=== PATIENT | female | born 1970 | race Caucasian/White ===

== ENCOUNTER 2017-02-28 06:13 | Emergency (ER) | payer MEDICAID, OTHER ==
[~2017-02-28] VITALS: Ht 154.9 cm; Wt 63.0 kg
[~2017-02-28 06:13] MED LIST: ATENOLOL; ELIM TOP; HYDR-3011 PO; PRED20 PO; TR1B60 TOP; [UNRECOGNIZED DRUG - REMARK]
[2017-02-28 06:18] VITALS: Ht 154.9 cm; Wt 63.0 kg
--- NOTE | 2017-02-28 07:44 | RADRPT ---
PROCEDURE: CHEST - 1 VIEW CLINICAL INDICATION: 47-year-old female with midsternal mass. TECHNIQUE: A single frontal PA view of the chest was performed. The images were reviewed on a PAC S workstation. COMPARISON: None. FINDINGS: The cardiomediastinal silhouette has a normal appearance. There is no evidence for an infiltrate. There is no evidence for congestive heart failure. There is no evidence for pneumothorax. The osseou s structures are intact. IMPRESSION: No evidence for active cardiopulmonary disease. .Patel Graham MD, MD Date Time Electronically viewed and signed by .Patel Graham MD, on 02/28/2017 07:44 .M/
--- NOTE | 2017-02-28 08:35 | ERD ---
ER Documentation Chief Complaint Date/Time DATE: 02/28/17 TIME: 08:29 Chief Complaint Chest lump started over night and BISHOP x1 week HPI This is a 47-year-old female presenting to the emergency department for mass to chest 3 days. Patient states she noticed a mass to mid chest superior to sternum 3 days ago that has slowly gotten larger. Patient currently denies pain. Denies chest pain, shortness breath or difficulty breathing. No difficulty swallowing or drooling. No labored breathing. Patient is talking in complete sentences. No sore throat. No fevers or chills. Patient has history of hyperthyroidism and is currently taking atenolol and Tapazole. ROS All systems reviewed and are negative except as per history of present illness. Medications Home Meds Active Scripts Prednisone (Prednisone) 20 Mg Tab, 40 MG PO DAILY for 4 Days, TAB Prov:ALTHEA MCDONNELL NP 08/11/16 Permethrin* (Elimite*) 5% Cr, 1 APPLIC TOP ONCE for 1 Day, TUB Prov:ALTHEA MCDONNELL NP 08/11/16 Hydroxyzine Hcl* (Hydroxyzine Hcl*) 25 Mg Tablet, 25 MG PO TID, #30 TAB Prov:WILDER COOL DO 07/19/16 Triamcinolone Acetonide (Triamcinolone Acetonide) 0.1% - 60 Ml Lotion, 1 APPLIC TOP BID, #1 BOTTLE Prov:WILDER COOL DO 07/19/16 Permethrin* (Elimite*) 5% Cr, 1 APPLIC TOP ONCE, #1 TUB Prov:WILDER COOL DO 07/19/16 Reported Medications Atenolol 04/28/11 [Hypothyroidism Meds] No Conflict Check 04/28/11 Allergies Allergies: Coded Allergies: No Known Drug Allergies (Verified Allergy, Unknown, 02/28/17) PMhx/Soc History of Surgery: Yes (Thyroide ) Anesthesia Reaction: No Hx Neurological Disorder: No Hx Respiratory Disorders: No Hx Cardiac Disorders: No Hx Psychiatric Problems: No Hx Miscellaneous Medical Probl: No Hx Alcohol Use: Yes (01/2011) Hx Substance Use: No Hx Tobacco Use: Yes Smoking Status: Current every day smoker Physical Exam Vitals Vital Signs Date Time Temp Pulse Resp B/P Pulse Ox O2 Delivery O2 Flow Rate FiO2 02/28/17 06:18 96.9 84 20 157/95 100 Physical Exam Const: Alert, no acute distress Head: Atraumatic Eyes: Normal Conjunctiva ENT: Normal External Ears, Nose and Mouth. Neck: Full range of motion..~ No meningismus. large 1inch x 1 inch hard mass is superior to sternum. No surrounding erythema. No skin changes. Mass is nonmobile. No fluctuance. No lymphadenopathy. Resp: Clear to auscultation bilaterally. No wheezing, rhonchi or crackles. No labored breathing or stridor. No intercostal retractions. Cardio: Regular rate and rhythm, no murmurs Abd: Soft, non tender, non distended. Normal bowel sounds Skin: No petechiae or rashes Back: No midline or flank tenderness Ext: No cyanosis, or edema Neur: Awake and alert Psych: Normal Mood and Affect Result Diagram: 02/28/17 1000 02/28/17 1000 Results 24 hrs Laboratory Tests Test 02/28/17 10:00 White Blood Count 5.210^3/ul Red Blood Count 3.9710^6/ul Hemoglobin 13.0g/dl Hematocrit 37.1% Mean Corpuscular Volume 93.5fl Mean Corpuscular Hemoglobin 32.7pg Mean Corpuscular Hemoglobin Concent 35.0g/dl Red Cell Distribution Width 14.4% Platelet Count 82998^3/UL Mean Platelet Volume 10.0fl Neutrophils % 52.6% Lymphocytes % 29.9% Monocytes % 9.1% Eosinophils % 6.8% Basophils % 1.4% Nucleated Red Blood Cells % 0.0/100WBC Neutrophils # 2.710^3/ul Lymphocytes # 1.610^3/ul Monocytes # 0.510^3/ul Eosinophils # 0.410^3/ul Basophils # 0.110^3/ul Nucleated Red Blood Cells # 0.010^3/ul Sodium Level 143mmol/L Potassium Level 3.9mmol/L Chloride Level 104mmol/L Carbon Dioxide Level 24mmol/L Anion Gap 19 Blood Urea Nitrogen 18mg/dl Creatinine 0.46mg/dl Glucose Level 99mg/dl Calcium Level 9.2mg/dl Total Bilirubin 0.5mg/dl Direct Bilirubin 0.00mg/dl Indirect Bilirubin 0.5mg/dl Aspartate Amino Transf (AST/SGOT) 42IU/L Alanine Aminotransferase (ALT/SGPT) 25IU/L Alkaline Phosphatase 102IU/L Total Protein 8.6g/dl Albumin 4.5g/dl Globulin 4.10g/dl Albumin/Globulin Ratio 1.09 Current Medications Medications (Trade) Dose Ordered Sig/Ligia Route PRN Reason Start Time Stop Time Status Last Admin Dose Admin IV Flush 10 ml 10 ml STK-MED ONCE .ROUTE 02/28/17 11:05 02/28/17 11:06 DC Sodium Chloride (NS) 100 ml @ ud STK-MED ONCE .ROUTE 02/28/17 11:05 02/28/17 11:06 DC Iohexol (Omnipaque 300mg/ ml) 30 ml STK-MED ONCE .ROUTE 02/28/17 11:05 02/28/17 11:06 DC Procedures/MDM ED COURSE: The patient was stable throughout ED course. I kept the patient and/or family informed of laboratory and diagnostic imaging results throughout the ED course. Imaging Chest x-ray Patient: GORDY OLMSTEAD : 1970 Age: 47 Sex: F MR #: [id number] DOS: 02/28/17 0654 Ordering MD: ALTHEA MCDONNELL NP Location: [facility] Room/Bed: PROCEDURE: CHEST - 1 VIEW CLINICAL INDICATION: 47-year-old female with midsternal mass. TECHNIQUE: A single frontal PA view of the chest was performed. The images were reviewed on a PACS workstation. COMPARISON: None. FINDINGS: The cardiomediastinal silhouette has a normal appearance. There is no evidence for an infiltrate. There is no evidence for congestive heart failure. There is no evidence for pneumothorax. The osseous structures are intact. IMPRESSION: No evidence for active cardiopulmonary disease. Ultrasound soft tissue Patient: GORDY OLMSTEAD : 1970 Age: 47 Sex: F MR #: [id number] DOS: 02/28/17 0821 Ordering MD: ALTHEA MCDONNELL NP Location: [facility] Room/Bed: PROCEDURE: Limited ultrasound of the sternum CLINICAL INDICATION: Sternal mass and swelling TECHNIQUE: Multiple transverse and longitudinal images of the sternum were obtained. COMPARISON: None FINDINGS: Diffuse soft tissue swelling is seen. No focal fluid collection is seen. No mass is identified. IMPRESSION: Diffuse soft tissue swelling. If clinical concern for sternal mass persist, a contrast enhanced CT of the chest is recommended. Patient: GORDY OLMSTEAD : 1970 Age: 47 Sex: F MR #: [id number] DOS: 02/28/17 0932 Ordering MD: ALTHEA MCDONNELL NP Location: [facility] Room/Bed: PROCEDURE: CT Chest with contrast. CLINICAL INDICATION: Chest mass TECHNIQUE: CT scan of the chest with contrast was performed on the [employer] CT scanner. The patient was scanned following the uncomplicated intravenous administration of 90 cc of Omnipaque 300 intravenous contrast. Coronal and sagittal reformatted images were obtained from the axial source images. DLP 346.9 mGycm CTDIvol 7.9 mGy COMPARISON: None. FINDINGS: There is an area of localized fat stranding which has a somewhat nodular appearance in the midline chest just above the sternal notch with adjacent subcutaneous fat stranding. There is no definable mass like component and there is no fluid collection. There is no retrosternal extension of this abnormality. There is no lung consolidation or pleural effusion or pneumothorax. The airways are patent. There is no suspicious nodule or mass. Vascular structures of the thorax are grossly unremarkable. There are no enlarged axillary or mediastinal lymph nodes. There is no acute upper abdominal abnormality. Mild degenerative changes are seen within the thoracic spine and shoulders with no acute osseous abnormality. IMPRESSION: Focal area of localized fat stranding is seen in the upper midline chest just above the sternal notch and this could represent a focal area of infection or inflammation without a definable mass. No acute pulmonary process. MDM: 47-year-old female presents emergency department for mass to chest palpated anteriorly to thoracic region above sternum. Patient noticed the mass about 3 days ago. No chest pain, shortness of breath, difficulty breathing, difficulty swallowing, choking or drooling. No sore throat or lymphadenopathy. No fevers or chills. Patient currently denies any pain. No fevers or chills. Remains hemodynamically stable. Patient's pulse ox is 100% on room air. No signs or symptoms of respiratory distress. Breathing is unlabored. No stridor. Patient is talking in complete sentences. Chest x-ray reviewed by radiologist is unremarkable. Ultrasound soft tissue reviewed by radiologist as diffuse soft tissue swelling. CT chest w/ contrast reviewed by radiologist as focal area of localized fat stranding is seen in the upper midline chest just above the sternal notch and this could represent a focal area of infection or inflammation without a definable mass. No acute pulmonary process. Patient remains hemodynamically stable. Afebrile. No signs or symptoms of respiratory distress. Discussed findings with Dr. Osborne who agrees that patient can follow up outpatient with PCP for additional testing and management. Patient appears well and stable for discharge home. Differential diagnosis includes but not limited to osteochondroma, fibrous dysplasia, chondroma, langerhans cell histiocytosis, mass NOS. Low suspicion for malignant neoplasm, osteosarcoma, abscess, cellulitis and multiple myeloma. Patient is appropriate for outpatient management and instructed to follow-up with primary care provider in the next 2-3 days for reassessment. Return to ED for any high fever, chest pain, difficulty breathing, shortness breath, wheezing , vomiting, diarrhea, abdominal pain or any new or worsening symptoms. Patient verbalizes understanding. All questions answered at discharge. Departure Diagnosis: Primary Impression: Chest wall mass Condition: Stable ALTHEA MCDONNELL NP Feb 28, 2017 08:35
--- NOTE | 2017-02-28 08:58 | RADRPT ---
PROCEDURE: Limited ultrasound of the sternum CLINICAL INDICATION: Sternal mass and swelling TECHNIQUE: Multiple transverse and longitudinal images of the sternum were obtained. COMPARISON: None FINDINGS: Diffuse soft tissue swelling is seen. No focal fluid collection is seen. No mass is identified. IMPRESSION: Diffuse soft tissue swelling. If clinical concern for sternal mass persist, a contrast enhanced CT of the chest is recommended. RPTAT: HPN[facility] Physician Monster Date Time Electronically viewed and signed by Jorge Guerrier Physician on 02/28/2017 08:58 /
[2017-02-28 10:10] LABS: ADD SCAN DIFF NO
[2017-02-28 10:18] LABS: BASOPHIL # 0.1 10^3/ul (0.0-0.1); BASOPHILS % 1.4 % (0.0-2.0); EOSINOPHILS # 0.4 10^3/ul (0.0-0.5); EOSINOPHILS % 6.8 % (0.0-7.0); HEMATOCRIT 37.1 % (37.0-47.0); LYMPHOCYTES # 1.6 10^3/ul (0.8-2.9); LYMPHOCYTES % 29.9 % (15.0-51.0); MEAN CORPUSCULAR HEMOGLOBIN 32.7 pg (29.0-33.0); MEAN CORPUSCULAR VOLUME 93.5 fl (82.0-101.0); MONOCYTE # 0.5 10^3/ul (0.3-0.9); MONOCYTES % 9.1 % (0.0-11.0); NEUTROPHIL # 2.7 10^3/ul (1.6-7.5); NEUTROPHILS % 52.6 % (39.0-77.0); PLATELET COUNT 316 10^3/UL (140-415); RED BLOOD COUNT 3.97 10^6/ul (4.20-5.40); RED CELL DISTRIBUTION WIDTH 14.4 % (11.5-14.5); WHITE BLOOD COUNT 5.2 10^3/ul (4.8-10.8)
[2017-02-28 10:25] LABS: ALBUMIN 4.5 g/dl (3.3-4.9)
[2017-02-28 10:26] LABS: POTASSIUM 3.9 mmol/L (3.5-5.1)
[2017-02-28 10:28] LABS: ALBUMIN/GLOBULIN RATIO 1.09; BILIRUBIN,INDIRECT 0.5 mg/dl (0-1.1); BILIRUBIN,TOTAL 0.5 mg/dl (0.2-1.3); CREATININE 0.46 mg/dl (0.44-1.00); TOTAL PROTEIN 8.6 g/dl (6.1-8.1)
[2017-02-28 10:52] LABS: CALCIUM 9.2 mg/dl (8.4-10.2)
[2017-02-28] MEDS ORDERED: IOHEXOL 300MG/ML 30 ML BTL ONE (11:05)
[2017-02-28] MEDS ORDERED: SOD CHLORIDE 0.9% 100 ML ONE (11:05)
--- NOTE | 2017-02-28 11:35 | RADRPT ---
PROCEDURE: CT Chest with contrast. CLINICAL INDICATION: Chest mass TECHNIQUE: CT scan of the chest with contrast was performed on the [employer] CT scanner. The pat ient was scanned following the uncomplicated intravenous administration of 90 cc of Omnipaque 300 in travenous contrast. Coronal and sagittal reformatted images were obtained from the axial source imag es. DLP 346.9 mGycm CTDIvol 7.9 mGy COMPARISON: None. FINDINGS: There is an area of localized fat stranding which has a somewhat nodular appearance in the midline c hest just above the sternal notch with adjacent subcutaneous fat stranding. There is no definable m ass like component and there is no fluid collection. There is no retrosternal extension of this abn ormality. There is no lung consolidation or pleural effusion or pneumothorax. The airways are patent. There is no suspicious nodule or mass. Vascular structures of the thorax are grossly unremarkable. There are no enlarged axillary or medias tinal lymph nodes. There is no acute upper abdominal abnormality. Mild degenerative changes are seen within the thorac ic spine and shoulders with no acute osseous abnormality. IMPRESSION: Focal area of localized fat stranding is seen in the upper midline chest just above the sternal notc h and this could represent a focal area of infection or inflammation without a definable mass. No acute pulmonary process. RPTAT: AA .Davide Burgses MD, MD Date Time Electronically viewed and signed by .Davide Burgess MD, MD on 02/28/2017 11:35 .J/
== END 2017-02-28 12:10 | disposition home or self-care (01) ==
LOC: FTE 06:13
DX: R22.2 Localized swelling, mass and lump, trunk (principal); F17.210 Nicotine dependence, cigarettes, uncomplicated; E03.9 Hypothyroidism, unspecified
CPT/HCPCS: 71010; 71260; 76536; 80053; 85025; Q9967; Z7502; Z7610